=== PATIENT | male | born 2000 | race Caucasian/White ===

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

== ENCOUNTER 2024-02-16 23:22 | Emergency (ER) | payer MEDICAID ==
[~2024-02-16] VITALS: Ht 180.3 cm; Wt 104.3 kg
[~2024-02-16 23:22] MED LIST: IBUP-1842 PO
[2024-02-16 23:27] VITALS: BP 127/81; PULSE 69; RESP 14; TEMP 97.3; O2SAT 99
[2024-02-17] MEDS: LIDOCAINE MPF 1% 10 MG/ML VIAL INJ ONE (02:50)
[2024-02-17] MEDS: IBUPROFEN 800 MG TAB PO ONE (02:51)
[2024-02-17] MEDS ORDERED: BACITRACIN OINT 500 UNITS/GM PKT TP ONE (03:33)
[2024-02-17] MEDS: BACITRACIN OINT 500 UNITS/GM PKT TP ONE (03:43)
[2024-02-17 03:55] VITALS: BP 118/78; PULSE 65; RESP 14; TEMP 97.3; O2SAT 99
== END 2024-02-17 03:55 | disposition home or self-care (01) ==
LOC: MED 23:22
DX: S61.412A Laceration without foreign body of left hand, initial encounter (principal); Z79.899 Other long term (current) drug therapy; W45.8XXA Other foreign body or object entering through skin, initial encounter; Y93.89 Activity, other specified; Y92.89 Other specified places as the place of occurrence of the external cause; Y99.8 Other external cause status
CPT/HCPCS: 12001; 73130; 99283; J2003; Q0092